=== PATIENT | female | born 1945 | race Caucasian/White ===

== ENCOUNTER 2018-04-01 09:00 | Outpatient (RCR) | payer MEDICARE, MEDICAID ==
[~2018-04-01 09:00] MED LIST: ABILIFY10 MG PO; ABILIFY30 MG PO; AMLODIPINE10 MG PO; CYCLOBENZAPRINE10 MG PO; HYDROCO/APAP1 T10 PO; ISOSORBIDE MONO60 MG PO; KLOR-CON M2020 MEQ PO; LASIX 40 MG TAB40 MG PO; LIDODERM5 % EX; MIRTAZAPINE30 MG PO; NITROSTAT0.4 MG SL; PROAIR HFA108 MCG/AC PO; TENORMIN25 M1 PO; XANAX1 MG PO
--- NOTE | 2018-04-04 07:37 | NUR ---
04/01/18 Patient in for Treatment team today. Patient presents clean and neat, alert and oriented x 4. Pt is in a pleasant mood. Pt states she is a little anxious about discharging from the program. Pt denies any suicidal thoughts at present time. Pt states she is doing well and wants to continue with Dr Garland when discharged. Dr Garland states that he will see patient in 2-3 weeks. Pt will be discharged today from [facility] with goals met.
== END 2018-04-21 23:59 | disposition home or self-care (01) ==
LOC: PATHWAYS 09:00
PROVIDERS: ATTEND Specialist
DX: F33.2 Major depressive disorder, recurrent severe without psychotic features (principal); F41.1 Generalized anxiety disorder